=== PATIENT | female | born 1985 | race Caucasian/White ===

== ENCOUNTER 2019-04-16 12:03 | Day surgery (SDC) | payer BC, OTHER ==
[2019-04-13 16:30] LABS: Hemoglobin 14.7 g/dL (12.0-16.0); Mean Corpuscular HGB CONC 34.2 g/dL (32.0-36.0); Mean Corpuscular Volume 96.2 fL (78.0-98.0); Mean Platelet Volume 7.8 fL (7.4-10.4); Platelet Count 193 thou/uL (130-400); RBC Distribution Width 11.8 % (11.5-14.5); Red Blood Cell (RBC) Count 4.45 mill/uL (4.20-5.40); White Blood Cell (WBC) Count 8.9 thou/uL (4.8-10.8)
[2019-04-13 16:32] VITALS: BMI 29.6
[2019-04-13 16:39] LABS: BHCG - Serum Negative (NEGATIVE); Pregs Control Background? CLEAR/WHITE (CLR/WHITE); Pregs Control Bar Appear? YES (CONTROL BAR)
[2019-04-16] MEDS ORDERED: Levofloxacin 500 mg/D5W 100 ml Premix Bag ONE (13:13)
[2019-04-16] MEDS ORDERED: Famotidine/PF 20 mg/2ml Vial ONE (13:19)
[2019-04-16] MEDS ORDERED: CeleCOXIB 100 MG CAP ONE (13:19)
[2019-04-16] MEDS ORDERED: Fentanyl 100 MCG/2 ML VIAL ONE ×3 (13:25→16:46)
[2019-04-16] MEDS ORDERED: Midazolam HCl 2 mg/2 ml Vial ONE (13:25)
[2019-04-16] MEDS ORDERED: Bupivacaine HCl 0.5%/Epinephrine 1:200,000/PF 30 ml Vial ONE (13:38)
[2019-04-16] MEDS ORDERED: Rocuronium Bromide 10 MG/ML (10ML VIAL) ONE (14:17)
[2019-04-16] MEDS ORDERED: PROPOFOL 200 MG/20 ML VIAL ONE (14:17)
[2019-04-16] MEDS ORDERED: Glycopyrrolate 0.2 MG/ML 5 ML SYRINGE ONE (14:17)
[2019-04-16] MEDS ORDERED: Lidocaine 1% PF 5 ML VIAL ONE (14:17)
[2019-04-16] MEDS ORDERED: Ondansetron PF 4 MG/2 ML Vial ONE (14:17)
[2019-04-16] MEDS ORDERED: Silver Nitrate Application 1 EACH ONE (15:35)
[2019-04-16] MEDS ORDERED: SUGAMMADEX SODIUM 200 MG/2 ML VIAL ONE (15:52)
[2019-04-16] MEDS ORDERED: HYDROcodone/Acetaminophen 5/325 mg Tablet ONE (18:31)
--- NOTE | 2019-04-16 23:49 | OP ---
DATE OF PROCEDURE: 04/16/2019 PREOPERATIVE DIAGNOSES: 1. 7 cm left ovarian cyst, suspect endometrioma. 2. History of deep venous thrombosis. POSTOPERATIVE DIAGNOSES: 1. 7 cm left ovarian cyst, suspect endometrioma. 2. History of deep venous thrombosis. PROCEDURE PERFORMED: Robotic assisted left ovarian cystectomy. SURGEON: Johnnie Berry DO FACILITIES SUPERVISOR: Aury Odell PA-C COMPLICATIONS: None. ESTIMATED BLOOD LOSS: Less than 20 mL. OPERATIVE FINDINGS: 1. Left ovarian endometrioma. 2. 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 DESCRIPTION OF PROCEDURE: The patient was taken back to the OR with IV fluids running. When she was in the OR, she was placed in dorsal supine position and general anesthesia was obtained. Once the patient was asleep, she was placed in dorsal lithotomy position. The abdomen and vagina were prepped and draped in normal fashion for gynecologic laparoscopy. A Malin catheter was placed into the bladder to drain the urine during the case. The surgeons were gowned and gloved and scrubbed in. Operative speculum was placed in the vagina. The anterior lip of the cervix was visualized and grasped with a single-tooth tenaculum. A Hulka clamp was gently placed through the uterus to use from uterine manipulation during the case and the single-tooth tenaculum was removed. Surgeon's gloves were changed and attention was turned to the laparoscopic portion of the case beginning at the supraumbilical fold. Local anesthesia was injected underneath the skin. A 12 mm skin incision was made with a scalpel. The Veress needle was placed through the skin incision into the abdominal peritoneal cavity and it was insufflated without difficulty. The Veress needle was then removed and a 12 mm trocar was placed gently through the supraumbilical incision. The laparoscope was then placed through this port with the above findings noted. The patient was placed in Trendelenburg position. In using similar technique, the right and left lower quadrant 8 mm ports and right upper quadrant 11 mm ports were all placed under direct visualization without complication. The robotic arms were docked. The robotic monopolar scissors were placed under direct visualization and the fenestrated bipolar grasper placed through the robotic arm under direct visualization. The left adnexa was examined with laparoscope and a large ovarian cyst was noted. With manipulation of the cyst, it ruptured a chocolate covered fluid consistent with an endometrioma. The ovarian cyst was dissected away from the pelvic sidewall, cul-de-sac and left lateral aspect of the uterus. The cyst wall was then dissected using a combination of bipolar and monopolar cautery from the left ovary. Segments of the cyst wall were removed for pathologic review. After the left ovarian cyst was drained and removed, the left ovary was copiously irrigated. Any small areas of bleeding were controlled with Bovie cauterization. Filmy adhesions between the left fallopian tube, ovary, uterus, and the pelvic sidewall were taken down with latter-day of anatomy. A layer of Shannan was placed on the ovarian fossa. No bleeding was noted at the end of the case. All instruments were removed and the counts were correct. The laparoscopic ports were removed. The supraumbilical incision was closed at the fascial layer with Vicryl suture. All four skin incisions were closed with Monocryl suture and dressed with Dermabond dressing. The Hulka clamp was removed and a small amount of bleeding was noted at the anterior lip of the cervix. Silver nitrate was applied with hemostasis noted. The patient was then cleaned and dried. The Malin catheter was removed. She was taken out of lithotomy position and transferred to recovery room in good condition. Postoperative plans include a dose of Lovenox 40 mg at approximately 12 hours postop this evening. These instructions have been reviewed with her and her family, and will continue every 24 hours for the next 10 days. Job ID: [id number] [facility]
== END 2019-04-16 20:05 | disposition home or self-care (01) ==
LOC: SDC 12:03
PROVIDERS: ATTEND Obstetrics & Gynecology
PROC: 0UB14ZZ Excision of Left Ovary, Percutaneous Endoscopic Approach (ICD-10-PCS; principal; 2019-04-16)
DX: N80.1 Endometriosis of ovary (principal); G40.909 Epilepsy, unspecified, not intractable, without status epilepticus; F17.210 Nicotine dependence, cigarettes, uncomplicated; F41.8 Other specified anxiety disorders; F32.9 Major depressive disorder, single episode, unspecified; Z79.899 Other long term (current) drug therapy; Z88.1 Allergy status to other antibiotic agents; Z91.040 Latex allergy status
CPT/HCPCS: 36415; 84703; 85027; 86850; 86900; 86901; 88307; J0670; J1956; J2001; J2250; J2405; J2704; J3010; S0028